=== PATIENT | male | born 1985 | race African-American/Black ===

== ENCOUNTER 2020-09-13 09:58 | Emergency (ER) | payer OTHER, MEDICARE, SELFPAY ==
[2020-09-13 10:06] VITALS: BP 135/84; PULSE 79; RESP 18; TEMP 36.9; O2SAT 99
[2020-09-13 10:36] LABS: Basophils Percent Auto 0.7 % (0.2-1.2); Eosinophils Absolute Auto 0.3 K/mm3 (0-0.3); Eosinophils Percent Auto 4.7 % (0-4.4); Hematocrit 44.7 % (42.0-52.0); Hemoglobin 15.3 g/dL (14.0-18.0); Immature Granulocyte Absolute 0.01 K/mm3 (0.00-0.031); Immature Granulocyte Percent A 0.2 % (0-0.5); Lymphocytes Absolute Auto 1.34 K/mm3 (0.9-3.2); Lymphocytes Percent Auto 24.4 % (18.3-44.2); Mean Corpuscular HGB Conc 34.2 g/dl (32-36); Mean Corpuscular Hemoglobin 29.1 pg (26-34); Mean Corpuscular Volume 85.1 fl (80-100); Monocytes Absolute Auto 0.3 K/mm3 (0.1-0.6); Monocytes Percent Auto 5.8 % (2.6-8.5); Neutrophils Absolute Auto 3.5 K/mm3 (1.3-6.7); Neutrophils Percent Auto 64.2 % (45.5-73.1); Platelet Count Result 243 k/mm3 (150-375); Red Blood Count 5.25 M/mm3 (4.6-6.20); Red Cell Distribution Width 13.1 % (11.5-14.5); White Blood Count 5.5 K/mm3 (4.5-10.0)
--- NOTE | 2020-09-13 10:44 | ED.NAVMDI ---
HPI - Nausea/Vomiting/Diarrhea General Chief complaint: Nausea/Vomiting/Diarrhea Stated complaint: vomiting, kidney failure Time Seen by Provider: 09/13/20 10:10 Source: patient Mode of arrival: ambulatory Limitations: no limitations History of Present Illness HPI Narrative: This is a 34-year-old male that presents to the emergency department for an episode of vomiting this morning. Reports he had a breakfast sandwich and then vomited after. Reports he feels better now. Denies fever, abdominal pain, or any further episodes of nausea and vomiting. Also denies dysuria or diarrhea. Related Data Home Medications Medication Instructions Recorded Confirmed metoprolol succinate 25 mg PO DAILY 10/20/19 oxybutynin chloride 5 mg PO DAILY 10/20/19 cetirizine [Zyrtec] 10 mg PO DAILY 09/13/20 Allergies Allergy/AdvReac Type Severity Reaction Status Date / Time latex Allergy Intermediate Hives Verified 09/13/20 10:08 Review of Systems Review of Systems: Narrative: CONSTITUTIONAL: Denies fever GASTROINTESTINAL: Reports nausea and vomiting. Denies abdominal pain, or diarrhea. GENITOURINARY: Denies dysuria or hematuria. All systems reviewed & are unremarkable except as noted in HPI and below PMFSH Past Medical History Medical History (Updated 09/13/20 @ 12:13 by Елена Johnson PA-C) History of spina bifida HTN (hypertension) Kidney failure Social History Social History (Updated 09/13/20 @ 10:46 by Елена Johnson PA-C) Smoking status: Current some day smoker Gender identity (if verbalized by the patient): Male Exam Narrative: Exam Narrative: GENERAL: Well-appearing, well-nourished, and in no acute distress. HEAD: Normocephalic, atraumatic. EYES: EOMI. CHEST: Clear to auscultation. No respiratory distress. No wheezes rales or rhonchi HEART: Regular rate and rhythm. No murmur heard. Normal peripheral pulses. ABDOMEN: Soft, nontender, nondistended, normal active bowel sounds. EXTREMITIES: Normal range of motion. No edema. SKIN: Warm, dry, no rash. NEURO: No focal deficits. Alert and oriented x3. PSYCH: Normal mood and affect Course Vital Signs Vital signs: Vital Signs Temperature 98.5 F 09/13/20 10:06 Pulse Rate 79 09/13/20 10:06 Respiratory Rate 18 09/13/20 10:06 Blood Pressure 135/84 09/13/20 10:06 Pulse Oximetry 99 09/13/20 10:06 Temperature 98.5 F 09/13/20 10:06 Pulse Rate 79 09/13/20 10:06 Respiratory Rate 18 09/13/20 10:06 Blood Pressure 135/84 09/13/20 10:06 Pulse Oximetry 99 09/13/20 10:06 MDM - Nausea/Vomiting/Diarrhea MDM Narrative Medical decision making narrative: Patient presents the emergency department for an episode of vomiting today. No further episodes of vomiting. Denies any abdominal pain. Abdominal exam is benign. He is afebrile and nontoxic-appearing. CBC and metabolic panel without concerning findings. Lipase is normal. UA with evidence of possible infection. This will be sent for culture and patient will be started on antibiotics. Able to tolerate p.o. challenge. He is stable and felt appropriate for further outpatient evaluation. He was given warnings to return to the ER Lab Data Attestation: I reviewed the patient's lab results. Result diagrams: 09/13/20 10:26 09/13/20 10:26 Labs: Lab Results 09/13/20 09/13/20 09/13/20 Range/Units 10:26 10:26 10:26 WBC 5.5 (4.5-10.0) K/mm3 RBC 5.25 (4.6-6.20) M/mm3 Hgb 15.3 (14.0-18.0) g/dL Hct 44.7 (42.0-52.0) % MCV 85.1 (80-100) fl MCH 29.1 (26-34) pg MCHC 34.2 (32-36) g/dl RDW 13.1 (11.5-14.5) % Plt Count 243 (150-375) k/mm3 MPV 10.0 (7.4-10.4) fl Immature Gran % (Auto) 0.2 (0-0.5) % Neut % (Auto) 64.2 (45.5-73.1) % Lymph % (Auto) 24.4 (18.3-44.2) % [place] % (Auto) 5.8 (2.6-8.5) % Eos % (Auto) 4.7 H (0-4.4) % Baso % (Auto) 0.7 (0.2-1.2) % Lymph # (Auto) 1.34 (0.9-3.2) K
[2020-09-13 10:55] LABS: Add Urine Microscopic? YES; Alanine Aminotransferase 14 U/L (4-50); Albumin Level 3.8 g/dL (3.5-5.1); Alkaline Phosphatase 76 U/L (38-126); Anion Gap 6 mmol/L (8-16); Appearance Urine Cloudy (Clear); Aspartate Amino Transferase 22 U/L (17-59); Bacteria Urine Trace /hpf; Bilirubin Urine Negative (Negative); Bilirubin,Total 0.4 mg/dL (0.2-1.3); Blood Urea Nitrogen 9 mg/dL (9-20); Blood Urine Negative (Negative); Calcium 9.2 mg/dL (8.4-10.2); Carbon Dioxide 28 mmol/L (22-30); Chloride 107 mmol/L (98-107); Color Urine Yellow (Yellow); Estimated CRCL calculation 75 ml/min; Estimated Glomerular Filt Rate > 60; Glucose 124 mg/dL (75-110); Glucose Urine UA Negative (Negative); Ketones Urine Negative (Negative); Leukocyte Esterase Ur 3+ LEU/UL (Negative); Lipase 46 U/L (23-300); Mucus Urine Rare /lpf; Nitrate Urine Positive (Negative); Protein Urine 1+ mg/dL (Negative); Sodium 141 mmol/L (137-145); Specific Grav Ur 1.013 (1.001-1.035); Squamous Epithelial Cell Urine Rare /hpf (Few); Urobilinogen Urine Negative mg/dL (<2.0); WBC Clumps Urine Present /HPF; WBC Urine >75 /hpf
[2020-09-13] MEDS: ONDANSETRON INJ 4 MG/2 ML VIAL IV PUSH (11:05)
[2020-09-13] MEDS: SODIUM CHLORIDE 0.9% IV 500 ML 999 ML IV CONT (11:05)
--- NOTE | 2020-09-13 11:40 | PC.NURSE ---
Patient updated and provided with PO challenge
[2020-09-13 12:12] VITALS: BP 129/73; PULSE 82; RESP 19; TEMP 36.6; O2SAT 100
== END 2020-09-13 12:25 | disposition home or self-care (01) ==
PROVIDERS: Emergency Provider Emergency Medicine; PCP Internal Medicine
DX: N30.00 Acute cystitis without hematuria (principal); R11.2 Nausea with vomiting, unspecified; R11.10 Vomiting, unspecified; I10 Essential (primary) hypertension; N19 Unspecified kidney failure; Q05.9 Spina bifida, unspecified; F17.200 Nicotine dependence, unspecified, uncomplicated
CPT/HCPCS: 36415; 51701; 80053; 81001; 83690; 85025; 87077; 87086; 87088; 87186; 96361; 96374; 99284; J2405; J7040